=== PATIENT | female | born 1990 | race African-American/Black ===

== ENCOUNTER 2017-10-27 22:15 | Emergency (ER) | payer SELFPAY ==
[~2017-10-27] VITALS: Ht 152.4 cm; Wt 85.2 kg
[~2017-10-27 22:15] MED LIST: FLEXERIL PO; NAPROSYN500 MG PO
[2017-10-27 23:34] LABS: URINE BILIRUBIN - DIPSTICK NEGATIVE (NEGATIVE); URINE BLOOD DIPSTICK NEGATIVE (NEGATIVE); URINE COLOR YELLOW; URINE GLUCOSE - DIPSTICK NEGATIVE (NEGATIVE); URINE KETONE NEGATIVE (NEGATIVE); URINE LEUK ESTERASE NEGATIVE (NEGATIVE); URINE NITRITE - DIPSTICK NEGATIVE (Negative); URINE PROTEIN - DIPSTICK NEGATIVE (NEG-TRACE); URINE SPECIFIC GRAVITY >=1.030; URINE UROBILINOGEN - DIPSTICK 0.2 E.U./dL (0.2)
[2017-10-27 23:37] LABS: URINE CLARITY SL CLOUDY
[2017-10-28] MEDS ORDERED: FLEXERIL PO (02:02)
[2017-10-28] MEDS ORDERED: LORTAB 1010 MG PO (02:02)
[2017-10-28 02:20] VITALS: BP 121/88
== END 2017-10-28 02:20 | disposition home or self-care (01) | DRG 552 ==
LOC: ED 22:15
PROVIDERS: Emergency Medicine
DX: S16.1XXA Strain of muscle, fascia and tendon at neck level, initial encounter (principal); S23.3XXA Sprain of ligaments of thoracic spine, initial encounter; X50.1XXA Overexertion from prolonged static or awkward postures, initial encounter; Y93.89 Activity, other specified; Y92.89 Other specified places as the place of occurrence of the external cause

== ENCOUNTER 2018-10-26 21:36 | Emergency (ER) | payer SELFPAY ==
[~2018-10-26] VITALS: Ht 154.9 cm; Wt 83.6 kg
[~2018-10-26 21:36] MED LIST changes: +LORTAB 1010 MG PO
[2018-10-26] MEDS ORDERED: TORADOL PO (22:12)
[2018-10-26 22:40] VITALS: BP 119/77
== END 2018-10-26 22:39 | disposition home or self-care (01) | DRG 563 ==
LOC: ED 21:36
DX: S29.012A Strain of muscle and tendon of back wall of thorax, initial encounter (principal); S16.1XXA Strain of muscle, fascia and tendon at neck level, initial encounter; X58.XXXA Exposure to other specified factors, initial encounter

== ENCOUNTER 2018-11-22 18:25 | Emergency (ER) | payer SELFPAY ==
[~2018-11-22] VITALS: Ht 154.9 cm; Wt 83.2 kg
[~2018-11-22 18:25] MED LIST changes: +TORADOL PO
[2018-11-22 19:08] LABS: URINE BILIRUBIN - DIPSTICK NEGATIVE (NEGATIVE); URINE BLOOD DIPSTICK NEGATIVE (NEGATIVE); URINE COLOR YELLOW; URINE GLUCOSE - DIPSTICK NEGATIVE (NEGATIVE); URINE KETONE TRACE mg/dL (NEGATIVE); URINE LEUK ESTERASE TRACE (NEGATIVE); URINE NITRITE - DIPSTICK NEGATIVE (Negative); URINE PROTEIN - DIPSTICK NEGATIVE (NEG-TRACE); URINE SPECIFIC GRAVITY 1.025; URINE UROBILINOGEN - DIPSTICK 0.2 E.U./dL (0.2)
[2018-11-22 19:15] LABS: HEMATOCRIT 37.7 % (37.0-47.0); HEMOGLOBIN 11.8 g/dl (12.0-16.0); IMMATURE GRANULOCYTES 0.2 % (0.0-5.0); MEAN CELL VOLUME 88.7 fL CALC (80.0-100.0); MEAN CORPUSCULAR HGB 27.8 pG CALC (26.0-32.0); MEAN CORPUSCULAR HGB CONC 31.3 g/L CALC (32.0-36.0); NEUT# 2.22 thou/uL (2.00-7.15); RED BLOOD COUNT 4.25 mill/uL (4.20-5.60); RED CELL DISTRI WIDTH 13.6 % (11.5-15.5)
[2018-11-22 19:17] LABS: URINE SQUAMOUS EPITHELIAL CELL MODERATE EPI/hpf (0-FEW)
[2018-11-22 19:18] LABS: URINE TRICHOMONAS RARE hpf
[2018-11-22 19:29] LABS: ALBUMIN 4.1 g/dL (3.2-5.0); ALKALINE PHOSPHATASE 72 u/l (38-126); ANION GAP 13 (6-22 (CALC)); BILIRUBIN, TOTAL 0.6 mg/dL (0.0-1.4); BUN 7 mg/dL (7-17); BUN/CREATININE RATIO 9 (12-20 (CALC)); CARBON DIOXIDE 27 mmol/l (22-30); CHLORIDE 103 mmol/l (95-108); CREATININE 0.7 mg/dL (0.5-1.0); GFR > 60 ML/MIN (>=60 (CALC)); GFR FOR AFR.AMER. > 60 ML/MIN (>=60 (CALC)); POTASSIUM 3.8 mmol/l (3.5-5.1); SGOT/AST 22 u/l (14-36); SODIUM 139 mmol/l (137-146); TOTAL PROTEIN 7.4 g/dL (6.3-8.2)
[2018-11-22] MEDS ORDERED: PROCTOFOAM HC10 GM RE (19:42)
[2018-11-22 19:55] VITALS: BP 120/80
== END 2018-11-22 20:02 | disposition home or self-care (01) | DRG 379 ==
LOC: ED 18:25
PROVIDERS: Family Medicine
DX: K62.5 Hemorrhage of anus and rectum (principal)

== ENCOUNTER 2019-01-29 05:46 | Emergency (ER) | payer SELFPAY ==
[~2019-01-29] VITALS: Ht 154.9 cm; Wt 86.0 kg
[~2019-01-29 05:46] MED LIST changes: +PROCTOFOAM HC10 GM RE
[2019-01-29 06:31] LABS: HEMATOCRIT 34.7 % (37.0-47.0); HEMOGLOBIN 10.7 g/dl (12.0-16.0); IMMATURE GRANULOCYTES 0.3 % (0.0-5.0); MEAN CELL VOLUME 89.9 fL CALC (80.0-100.0); MEAN CORPUSCULAR HGB 27.7 pG CALC (26.0-32.0); MEAN CORPUSCULAR HGB CONC 30.8 g/L CALC (32.0-36.0); NEUT# 2.45 thou/uL (2.00-7.15); RED BLOOD COUNT 3.86 mill/uL (4.20-5.60); RED CELL DISTRI WIDTH 13.6 % (11.5-15.5)
[2019-01-29 06:33] LABS: URINE BILIRUBIN - DIPSTICK NEGATIVE (NEGATIVE); URINE BLOOD DIPSTICK SMALL (NEGATIVE); URINE COLOR YELLOW; URINE GLUCOSE - DIPSTICK NEGATIVE (NEGATIVE); URINE KETONE NEGATIVE (NEGATIVE); URINE LEUK ESTERASE NEGATIVE (NEGATIVE); URINE NITRITE - DIPSTICK NEGATIVE (Negative); URINE PROTEIN - DIPSTICK NEGATIVE (NEG-TRACE); URINE SPECIFIC GRAVITY 1.025; URINE UROBILINOGEN - DIPSTICK 0.2 E.U./dL (0.2)
[2019-01-29 06:37] LABS: BARBITURATES NEGATIVE (NEGATIVE); COCAINE NEGATIVE (NEGATIVE); METHADONE NEGATIVE (NEGATIVE); OXCYCODONE NEGATIVE (NEGATIVE); TETRAHYDROCANNABIONOL NEGATIVE (NEGATIVE); TRICYLIC ANTIDEPRESSANTS NEGATIVE (NEGATIVE)
[2019-01-29 06:44] LABS: ALBUMIN 3.7 g/dL (3.2-5.0); ALKALINE PHOSPHATASE 66 u/l (38-126); ANION GAP 11 (6-22 (CALC)); BILIRUBIN, TOTAL 0.3 mg/dL (0.0-1.4); BUN 11 mg/dL (7-17); BUN/CREATININE RATIO 14 (12-20 (CALC)); CARBON DIOXIDE 25 mmol/l (22-30); CHLORIDE 109 mmol/l (95-108); CREATININE 0.8 mg/dL (0.5-1.0); GFR > 60 ML/MIN (>=60 (CALC)); GFR FOR AFR.AMER. > 60 ML/MIN (>=60 (CALC)); POTASSIUM 4.4 mmol/l (3.5-5.1); SGOT/AST 21 u/l (14-36); SODIUM 140 mmol/l (137-146); TOTAL PROTEIN 6.8 g/dL (6.3-8.2); URINE BACTERIA FEW hpf; URINE SQUAMOUS EPITHELIAL CELL FEW EPI/hpf (0-FEW); URINE TRICHOMONAS RARE hpf; URINE WBC 0-2 WBC/hpf (0-5)
[2019-01-29 06:56] LABS: MYOGLOBIN 24 ng/mL (0 - 62)
[2019-01-29 07:25] VITALS: BP 111/77
== END 2019-01-29 07:39 | disposition home or self-care (01) | DRG 310 ==
LOC: ED 05:46
PROVIDERS: Emergency Medicine
DX: R00.2 Palpitations (principal)

== ENCOUNTER 2019-07-13 07:17 | Emergency (ER) | payer SELFPAY ==
[~2019-07-13] VITALS: Ht 154.9 cm; Wt 90.0 kg
[2019-07-13] MEDS ORDERED: AUGMENTIN500TAB PO (08:02)
[2019-07-13 08:08] VITALS: BP 134/88
== END 2019-07-13 08:08 | disposition home or self-care (01) | DRG 153 ==
LOC: ED 07:17
DX: H66.91 Otitis media, unspecified, right ear (principal)

== ENCOUNTER 2021-06-07 22:29 | Emergency (ER) | payer BC ==
[~2021-06-07] VITALS: Ht 154.9 cm; Wt 80.0 kg
[~2021-06-07 22:29] MED LIST changes: +AUGMENTIN500TAB PO
[2021-06-08 04:24] VITALS: BP 119/77
== END 2021-06-08 04:24 | disposition home or self-care (01) | DRG 563 ==
LOC: ED 22:29
DX: S93.602A Unspecified sprain of left foot, initial encounter (principal); X50.0XXA Overexertion from strenuous movement or load, initial encounter